=== PATIENT | female | born 1940 ===

== ENCOUNTER 2021-01-22 06:00 | Outpatient (RCR) | payer MEDICARE, SELFPAY | END 2021-02-20 23:59 | disposition home or self-care (01) | LOC: MPT 06:00 | PROVIDERS: Referring Provider Physician Assistant; Visit Provider Physician Assistant | DX: S72.002D Fracture of unspecified part of neck of left femur, subsequent encounter for closed fracture with routine healing (principal); X58.XXXD Exposure to other specified factors, subsequent encounter | CPT/HCPCS: 97110; 97116; 97161; 97530 ==

== ENCOUNTER 2021-02-21 06:00 | Outpatient (RCR) | payer MEDICARE, SELFPAY | END 2021-03-23 23:59 | disposition home or self-care (01) | LOC: MPT 06:00 | PROVIDERS: Visit Provider Physician Assistant | DX: S72.002D Fracture of unspecified part of neck of left femur, subsequent encounter for closed fracture with routine healing (principal); X58.XXXD Exposure to other specified factors, subsequent encounter | CPT/HCPCS: 97110; 97116; 97530 ==

== ENCOUNTER 2021-03-24 06:00 | Outpatient (RCR) | payer MEDICARE, SELFPAY | END 2021-04-22 23:59 | disposition home or self-care (01) | LOC: MPT 06:00 | PROVIDERS: Visit Provider Physician Assistant | DX: S72.002A Fracture of unspecified part of neck of left femur, initial encounter for closed fracture (principal); X58.XXXA Exposure to other specified factors, initial encounter | CPT/HCPCS: 97110; 97140; 97530 ==

== ENCOUNTER 2021-04-23 06:00 | Outpatient (RCR) | payer MEDICARE, SELFPAY | END 2021-05-23 23:59 | disposition home or self-care (01) | LOC: MPT 06:00 | PROVIDERS: Visit Provider Physician Assistant | DX: S72.002D Fracture of unspecified part of neck of left femur, subsequent encounter for closed fracture with routine healing (principal); X58.XXXD Exposure to other specified factors, subsequent encounter | CPT/HCPCS: 97110; 97140; 97530 ==